=== PATIENT | female | born 1970 | race Caucasian/White ===

== ENCOUNTER 2024-02-11 10:37 | Day surgery (SDC) | payer MEDICAID ==
[~2024-02-11] VITALS: Ht 170.2 cm; Wt 63.5 kg
[2024-02-11] MEDS ORDERED: LIDOCAINE MPF 2% 20 MG/1 ML, 5 ML VIAL INH ONE (11:00)
[2024-02-11] MEDS ORDERED: MIDAZOLAM HCL 5 MG/5 ML VIAL ONE (11:28)
[2024-02-11] MEDS ORDERED: DIPHENHYDRAMINE INJ 50 MG/ML VIAL ONE (11:29)
[2024-02-11] MEDS ORDERED: fentaNYL CITRATE/PF 100 MCG/2 ML AMP ONE (11:29)
[2024-02-11] MEDS: fentaNYL CITRATE/PF 100 MCG/2 ML AMP IVP ONE (13:11)
[2024-02-11 13:29] VITALS: O2SAT 100
[2024-02-11 15:09] VITALS: BP_SYST 129; PULSE 61; RESP 18
== END 2024-02-11 14:02 | disposition home or self-care (01) ==
LOC: SDS 10:37 → SMU 10:42 → SDS 14:02
PROVIDERS: ATTEND Internal Medicine
DX: M47.22 Other spondylosis with radiculopathy, cervical region (principal); I10 Essential (primary) hypertension; E11.9 Type 2 diabetes mellitus without complications; E78.5 Hyperlipidemia, unspecified; E21.3 Hyperparathyroidism, unspecified; F41.9 Anxiety disorder, unspecified; F32.A Depression, unspecified; Z79.890 Hormone replacement therapy; Z79.899 Other long term (current) drug therapy
CPT/HCPCS: 62321; 82948; J2250; J3010; Q9967; J1010; 76000; J1030; J1200